=== PATIENT | female | born 1990 | race Hispanic/Latino ===

== ENCOUNTER 2020-08-14 14:21 | Emergency (ER) | payer OTHER ==
[~2020-08-14] VITALS: Ht 160 cm; Wt 70.3 kg
[2020-08-14] MEDS ORDERED: ATIVAN1 MG PO ×2 (15:10→15:19)
== END 2020-08-14 15:30 | disposition home or self-care (01) ==
LOC: FSED 14:30
DX: U07.1 COVID-19 (principal); F41.9 Anxiety disorder, unspecified; G47.00 Insomnia, unspecified
CPT/HCPCS: 99283